=== PATIENT | female | born 1985 | race Hispanic/Latino ===

== ENCOUNTER 2016-09-29 15:23 | Emergency (ER) | payer OTHER ==
[~2016-09-29] VITALS: Ht 152.4 cm; Wt 99.8 kg
--- NOTE | 2016-09-29 16:33 | ED GENERAL ADULT ---
History of Present Illness General Chief Complaint: Low Back Pain/Injury Stated Complaint: LOW BACK PAIN/TAILBONE PAIN-28 WEEKS PREG Source: patient Exam Limitations: no limitations Vital Signs & Intake/Output Vital Signs & Intake/Output Vital Signs Date Time Temp Pulse Resp B/P Pulse O2 O2 Flow FiO2 Ox Delivery Rate 09/29 1711 97.8 09/29 1534 97.8 110 18 120/79 98 Room Air Allergies Coded Allergies: No Known Allergies (09/29/16) Triage Note: 31 YEAR OLD FEMALE, STATES THAT SHE IS 28 WEEKS AND THAT WITH HER FIRST PREGNACY SHE HAD SCIATICA, NOW FOR THE PAST WEEK OR SO SAME SYMPTOMS , PAIN LOW BACK AND SHOOTS DOWN HER LEG, DENIES ABD CRAMPING DISCHARGE. THIS NURSE SPOKE TO [facility] AND SHE IS OK TO BE SEEN IN ER AND THEY WILL COME AND DO FHR. PT HAS NO MD IN AREA Triage Nurses Notes Reviewed? yes Onset: Gradual Duration: week(s): (1) Timing: remote history Injury Environment: home Severity: severe Severity Numbers: 9 Modifying Factors: Worsens With: movement. : Yes Patient currently breastfeeds: No HPI: Patient is a 31-year-old female presenting to the emergency department with chief complaint of low back pain worsening over the past several days. History of sciatica during . She is currently 28 weeks due on December 10. Denies any urinary frequency or urgency or dysuria. No hematuria. Denies abdominal pain or cramping. No vaginal bleeding. She recently moved to the area from [facility]. She has an appointment scheduled for tomorrow in the ER for an ultrasound that after that she would like to remain in the area and find a new MANAGER PROCUREMENT. Denies any nausea or vomiting. No chest pain palpitations or shortness of breath. Denies any numbness or tingling. Pain radiates down the left leg at times. No Larch any weakness. Denies any urinary incontinence or retention. No trauma. (ROSINA LOPEZ,JERRY) Reconcile Medications Nitrofurantoin Monohyd/M-Cryst (Macrobid 100 MG Capsule) 100 MG CAPSULE 1 CAP PO BID UTI with food Prednisone 10 MG TABLET 0 PO DAILY ASTHMA 5 TABS PO ON DAY 1, DECREASE BY 10 MG DAILY X 5 DAYS. (BEE SAHU,MERLIN) Past History Travel History Traveled to [place] past 21 day No Medical History Any Pertinent Medical History? 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 No (JERRY IGLESIAS) Review of Systems Review of Systems Constitutional: Reports: no symptoms. Comments Review of systems: See HPI, All other systems negative. Constitutional, no chills fever or weight loss HEENT: No visual changes no sore throat no congestion Cardiovascular: No chest pain ,palpitation , orthopnea or ankle swelling Skin, no jaundice no rashes Respiratory: No dyspnea cough sputum or hemoptysis GI: No nausea no vomiting : No dysuria No hematuria Muscle skeletal: no neck pain, Neurologic: No numbness no confusion Psych: No stress anxiety Immunology: No splenectomy or history of AIDS (JERRY IGLESIAS) Physical Exam Physical Exam General Appearance: well developed/nourished, no apparent distress, alert, awake , comfortable Comments: Well-developed well-nourished person in no acute distress HEENT: Pupils equally round and reactive to light and accommodation. Nose is atraumatic. Neck: NORMAL INSPECTION Back: Tenderness palpation in the left lumbar paraspinal region. Near full range of motion somewhat limited secondary to pain. Negative straight leg raise bilaterally. Cardiovascular: Regular rate and rhythms no murmurs rubs or gallops, normal JVP Respiratory: Chest nontender. No respiratory distress.breath sounds clear to auscultation bilaterally Abdomen: Soft, ABDOMEN, no appreciable organomegaly. Normal bowel sounds. No ascites, nontender. Extremity: No edema Neuro: Alert oriented x3, motor sensory normal, PATELLAR REFLEX ARE 2 PLUS BILATERALLY Skin: No appreciable rash on exposed skin, skin is warm and dry. Psych: Mood and affect is normal, memory and judgment is normal. Core Measures ACS in differential dx? No CVA/TIA Diagnosis: No Severe Sepsis Present: No Septic Shock Present: No (JERRY IGLESIAS) Progress Differential Diagnoses I considered the following diagnoses in my evaluation of the patient: Sciatica, muscle strain, contusion, UTI, kidney stone Plan of Care: Orders Procedure Date/time Status Add-on Test (ER Only) 09/29 1739 Active CULTURE,URINE 09/30 1707 Active URINALYSIS 09/29 1633 Complete Laboratory Tests 09/29/161707: Urine Color YEL, Urine Clarity CLEAR, Urine pH 6.5, Ur Specific [place] 1.020, Urine Protein 30 H, Urine Ketones TRACE H, Urine Nitrite NEG, Urine Bilirubin NEG, Urine Urobilinogen 0.2, Ur Leukocyte Esterase TRACE H, Ur Microscopic SEDIMENT EXAMINED, Urine RBC RARE, Urine WBC 5-10 H, Ur Epithelial Cells MOD H , Urine Crystals RARE CA OX, Urine Bacteria MANY H, Urine Hemoglobin NEG, Urine Glucose NEG Microbiology 09/30 1707 URINE ROUT: Urine Culture - RECD Initial ED EKG: none Comments: Given Tylenol on arrival for pain. Patient no acute distress. No CVA tenderness. Urinalysis sent. tones are 140-150. Patient formed of urinalysis results. Slight UTI. Patient will be treated with Macrobid and follow-up with MANAGER PROCUREMENT. She was given a list of providers she can follow-up with. Discussed with Dr. Lora who agrees with plan. (JERRY IGLESIAS) Departure Departure Time of Disposition: 1739 Disposition: HOME OR SELF CARE Condition: Stable Clinical Impression Primary Impression: Sciatica Qualifiers: Laterality: left Qualified Code: M54.32 - Sciatica, left side Secondary Impressions: Urinary tract infection Qualifiers: Urinary tract infection type: site unspecified Hematuria presence: without hematuria Qualified Code: N39.0 - Urinary tract infection, site not specified Referrals: ISA RAMIREZ DO PATIENT HAS NO PRIMARY CARE DR (PCP/Family) KAILYN HOLLAND MD Additional Instructions: Follow-up with her MANAGER PROCUREMENT appointment for tomorrow. Take antibiotics as prescribed for UTI. Increase fluids. Take [id number] Tylenol as directed. Try warm compresses on her back. Return for worsening symptoms or concerns. YOU WERE also given a primary care physician SO YOU can follow-up with. Departure Forms: Customer Survey General Discharge Information Prescriptions: Current Visit Scripts Nitrofurantoin Monohyd/M-Cryst (Macrobid 100 MG Capsule) 1 CAP PO BID #10 CAP with food (JERRY IGLESIAS) PA/GREETING CARD MAKER Co-Sign Statement Statement: ED Attending supervision documentation- [] I saw and evaluated the patient. I have also reviewed all the pertinent lab results and diagnostic results. I agree with the findings and the plan of care as documented in the PA's/GREETING CARD MAKER's documentation. [X] I have reviewed the ED Record and agree with the PA's/GREETING CARD MAKER's documentation. [] Additions or exceptions (if any) to the PAs/GREETING CARD MAKER's note and plan are summarized below: [] (BEE SAHU,MERLIN) Critical Care Note Critical Care Note Critical Care Time: non-applicable (JERRY IGLESIAS)
[2016-09-29] MEDS ORDERED: MACROBID 100 M100 MG PO (17:42)
[2016-09-29 18:15] VITALS: BP 115/65
== END 2016-09-29 18:17 ==
LOC: ERH 15:23
DX: O23.43 Unspecified infection of urinary tract in pregnancy, third trimester (principal); O99.89 Other specified diseases and conditions complicating pregnancy, childbirth and the puerperium; M54.42 Lumbago with sciatica, left side; Z3A.28 28 weeks gestation of pregnancy
CPT/HCPCS: 81001; 87086

== ENCOUNTER 2016-10-04 22:27 | Emergency (ER) | payer OTHER ==
[~2016-10-04] VITALS: Ht 152.4 cm; Wt 99.8 kg
[~2016-10-04 22:27] MED LIST: MACROBID 100 M100 MG PO
--- NOTE | 2016-10-04 23:28 | ED DYSPNEA/ASTHMA COMPLAINT ---
See Addendum History of Present Illness General Chief Complaint: Wheezing/Asthma Stated Complaint: ASTHMA Source: patient, old records Exam Limitations: no limitations Vital Signs & Intake/Output Vital Signs & Intake/Output Vital Signs Date Time Temp Pulse Resp B/P Pulse O2 O2 Flow FiO2 Ox Delivery Rate 10/05 0103 98.4 88 18 125/73 98 Room Air 10/04 2353 98 10/04 2347 Room Air 10/04 2238 98.3 116 20 129/79 96 Room Air ED Intake and Output 10/05 0000 10/04 1200 Intake Total Output Total 100 Balance -100 Output, Urine 100 Patient 220 lb Weight Allergies Coded Allergies: No Known Allergies (09/29/16) Reconcile Medications Nitrofurantoin Monohyd/M-Cryst (Macrobid 100 MG Capsule) 100 MG CAPSULE 1 CAP PO BID UTI with food Prednisone 10 MG TABLET 0 PO DAILY ASTHMA 5 TABS PO ON DAY 1, DECREASE BY 10 MG DAILY X 5 DAYS. Triage Note: PT 28 WEEKS TO TRIAGE WITH C/O WHEEZING AND OUT OF BREATH,CHEST TIGHTNESS SINCE LAST NIGHT PT HAS BEEN USING VENTOLIN INH AND NEB TX AT HOME. . VSS. HX OF ASTHMA. Triage Nurses Notes Reviewed? yes : Yes Patient currently breastfeeds: No HPI: Patient is a 31-year-old female with one miscarriage currently approximately 28 weeks presents complaining of cough, wheezing, congestion. Symptoms onset yesterday. Patient has been taking Claritin, Yue, using her albuterol inhaler and nebulizer with minimal improvement. Cough is nonproductive. Wheezing and cough are currently moderate. Patient feels baby moving appropriately. Patient denies chest pain, abdominal pain, vaginal bleeding, fevers, chills. (PRERNA VILLANUEVA) Past History Travel History Traveled to [place] past 21 day No Medical History Any Pertinent Medical History? 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 No (PERRNA VILLANUEVA) Review of Systems Review of Systems Constitutional: Denies: chills, fever. EENTM: Reports: nasal congestion. Denies: ear pain, throat pain. Respiratory: Reports: cough, short of breath, wheezing. Denies: sputum production. Cardiovascular: Denies: chest pain. GI: Denies: abdominal pain, vomiting. Genitourinary: Denies: dysuria, hematuria, pain. Musculoskeletal: Reports: no symptoms. Skin: Reports: no symptoms. Neurological/Psychological: Reports: no symptoms. Hematologic/Endocrine: Reports: no symptoms. Immunologic/Allergic: Reports: no symptoms. (PRERNA VILLANUEVA) Physical Exam Physical Exam General Appearance: well developed/nourished, alert, awake Head: atraumatic, normal appearance Eyes: Bilateral: normal appearance, PERRL, EOMI. Ears, Nose, Throat: normal pharynx, normal ENT inspection, hearing grossly normal Neck: normal inspection, supple, full range of motion Respiratory: chest non-tender, mild diffuse expiratory wheezing Cardiovascular: tachycardia, regular rhythm, no murmur Gastrointestinal: gravid uterus, nontender Extremities: normal inspection, normal capillary refill, normal range of motion, no edema Neurologic/Psych: no motor/sensory deficits, awake, alert, oriented x 3, normal gait, normal mood/affect Skin: intact, normal color, warm/dry Lymphatic: no anterior cervical jaycee Core Measures ACS in differential dx? No Severe Sepsis Present: No Septic Shock Present: No (PRERNA VILLANUEVA) Progress Differential Diagnosis: asthma, bronchitis, pneumonia Plan of Care: Orders Procedure Date/time Status URINALYSIS 10/04 2337 Complete Laboratory Tests 10/04/16 2343: Urinalysis LIGHT H, Urine Color YEL, Urine Clarity CLEAR, Urine pH 6.0, Ur Specific [place] 1.025, Urine Protein NEG, Urine Ketones TRACE H, Urine Nitrite NEG, Urine Bilirubin NEG, Urine Urobilinogen 0.2, Ur Leukocyte Esterase TRACE H , Ur Microscopic SEDIMENT EXAMINED, Urine RBC 1-3, Urine WBC 1-3 H, Ur Epithelial Cells MOD H, Urine Bacteria MOD H, Urine Hemoglobin TRACE-INTACT, Urine Glucose NEG Discussed with Dr. Chang. 10/05/2016 12:14:41 AM: Patient feeling improved after nebulizer treatment. Appears stable for discharge. Patient provided with information to establish an family medicine resident as she recently moved to the area. (PRERNA VILLANUEVA) Initial ED EKG: none (PRERNA VILLANUEVA) Departure Departure Time of Disposition: 6 Disposition: HOME OR SELF CARE Condition: Stable Clinical Impression Primary Impression: Asthma exacerbation Referrals: PATIENT HAS NO PRIMARY CARE DR (PCP/Family) KAILYN WILSON MD Additional Instructions: Follow up with Dr. Wilson(family medicine resident) to re-establish care. Call in the morning for appointment. Use your inhaler as directed. Return to the ER if fevers, breathing worsening, unable to stay hydrated or worsening of symptoms. Departure Forms: Customer Survey General Discharge Information Prescriptions: Current Visit Scripts Prednisone 0 PO DAILY #15 TAB 5 TABS PO ON DAY 1, DECREASE BY 10 MG DAILY X 5 DAYS. (PRERNA VILLANUEVA) PA/WIRELESS STORE MANAGER Co-Sign Statement Statement: ED Attending supervision documentation- [] I saw and evaluated the patient. I have also reviewed all the pertinent lab results and diagnostic results. I agree with the findings and the plan of care as documented in the PA's/WIRELESS STORE MANAGER's documentation. [X] I have reviewed the ED Record and agree with the PA's/WIRELESS STORE MANAGER's documentation. [] Additions or exceptions (if any) to the PAs/WIRELESS STORE MANAGER's note and plan are summarized below: [] (MAYANK SAHU,SHERINE Spencer) Critical Care Note Critical Care Note Critical Care Time: non-applicable (PRERNA VILLANUEVA)
[2016-10-05] MEDS ORDERED: PREDNISONE10 M2 PO (00:13)
[2016-10-05 01:03] VITALS: BP 125/73
== END 2016-10-05 01:03 ==
LOC: ERH 22:27
DX: O99.513 Diseases of the respiratory system complicating pregnancy, third trimester (principal); J45.901 Unspecified asthma with (acute) exacerbation; Z3A.28 28 weeks gestation of pregnancy
CPT/HCPCS: 1263; 81001

== ENCOUNTER 2016-12-16 05:05 | Inpatient (IN) | payer OTHER ==
[~2016-12-16] VITALS: Ht 152.4 cm; Wt 104.3 kg
[~2016-12-16 05:05] MED LIST changes: +PREDNISONE10 M2 PO
[2016-12-16 05:57] LABS: ABSOLUTE BASOPHIL COUNT 0 /CUMM (0.0-0.2); ABSOLUTE EOSINOPHIL COUNT 0.1 /CUMM (0.0-0.7); ABSOLUTE GRANULOCYTE CT 9.5 /CUMM (1.4-6.5); ABSOLUTE LYMPH COUNT 3.3 /CUMM (1.2-3.4); ABSOLUTE MONOCYTE COUNT 1.1 /CUMM (0.10-0.60); BASOPHIL % 0.1 % (0.0-2.0); GRANULOCYTE % 67.6 % (42.2-75.2); HEMATOCRIT 37.3 % (37-47); MEAN CORPUSCULAR HGB 27.8 PG (27.0-31.0); MEAN CORPUSCULAR HGB CONC 32.6 G/DL (33.0-37.0); MEAN CORPUSCULAR VOLUME 85.4 FL (81.0-99.0); MEAN PLATELET VOLUME 6.9 FL (7.4-10.4); PLATELET COUNT 383 /CUMM (130-400); RBC DISTRIBUTION WIDTH 14.1 % (11.5-14.5); RED BLOOD CELL CT 4.37 /CUMM (4.20-5.40); WHITE BLOOD CELL COUNT 14.1 /CUMM (4.8-10.8)
--- NOTE | 2016-12-16 09:05 | PN- OBGYN ---
Surgical Brief Attending Note Brief Attending Note: Pt without strong sensation of contractions. pitocin restarted as they are q 5-6 minutes apart. pt going to labor down. anticipate this am. h/o PPH with 2nd delivery. Methergine/hemabate/misoprostol in room.
[2016-12-16 10:30] VITALS: BP 105/66
[2016-12-17 08:16] LABS: ABSOLUTE BASOPHIL COUNT 0 /CUMM (0.0-0.2); ABSOLUTE LYMPH COUNT 3.6 /CUMM (1.2-3.4); MEAN PLATELET VOLUME 7.1 FL (7.4-10.4); RBC DISTRIBUTION WIDTH 13.9 % (11.5-14.5); WHITE BLOOD CELL COUNT 12.8 /CUMM (4.8-10.8)
[2016-12-17 08:25] LABS: ABSOLUTE EOSINOPHIL COUNT 0.2 /CUMM (0.0-0.7); ABSOLUTE GRANULOCYTE CT 8.2 /CUMM (1.4-6.5); ABSOLUTE MONOCYTE COUNT 0.8 /CUMM (0.10-0.60); BASOPHIL % 0.3 % (0.0-2.0); EOSINOPHIL % 1.2 % (0-5); GRANULOCYTE % 63.9 % (42.2-75.2); MEAN CORPUSCULAR HGB 28.1 PG (27.0-31.0); MEAN CORPUSCULAR HGB CONC 32.7 G/DL (33.0-37.0); PLATELET COUNT 318 /CUMM (130-400)
[2016-12-17 08:28] LABS: RED BLOOD CELL CT 3.15 /CUMM (4.20-5.40)
[2016-12-17 08:29] LABS: HEMATOCRIT 27.1 % (37-47)
--- NOTE | 2016-12-17 16:04 | PN- Post Delivery/GYN ---
Subjective Subjective: Doing well overall. Patient started and out of bed once this morning. Dates her pain is controlled well with by mouth pain medication Review of Systems: Negative for cardiac pulmonary GI complaints Objective Last 24 Hrs of Vital Signs/I&O Afebrile normal vital signs pulse ox 99% room air Physical Exam General Appearance Alert, Oriented X3, Cooperative, No Acute Distress Cardiovascular Regular Rate Lungs Normal Air Movement Abdomen Normal Bowel Sounds, Soft, No Tenderness, No Hepatospenomegaly, incision clean dry and intact no erythema or induration or drainage Neurological Normal Gait, Normal Speech Extremities No Tenderness/Swelling Reproductive (FEMALE) Normal female genitalia Current Medications: Current Medications Sig/Antoine Start time Last Medication Dose Route Stop Time Status Admin Acetaminophen 1,000 MG Q6P PRN 12/16 1000 AC N/A 1 UNIT IV Acetaminophen 650 MG Q4P PRN 12/16 899 AC PO Bisacodyl 10 MG DAILY NEEDED PRN 12/16 899 AC IL Diphenhydramine HCl 25 MG Q6P PRN 12/16 899 AC IV Docusate Sodium 100 MG AT BEDTIME PRN 12/16 899 AC PO Enoxaparin Sodium 50 MG 12/17 AC SC Enoxaparin Sodium 40 MG 12/16 DC 12/16 SC 2026 Hydroxyzine HCl 50 MG AT BEDTIME NEED.. 12/17 0000 AC PO Ibuprofen 600 MG Q6P PRN 12/16 899 AC PO Ibuprofen 800 MG Q6P PRN 12/16 899 AC 12/17 PO 1211 Ketorolac 30 MG .STK-MED ONE 12/175 DC Tromethamine IM 12/17 0416 Ketorolac 30 MG Q6H 12/16 1000 DC 12/16 Tromethamine IV 12/17 0401 0958 Ketorolac 30 MG Q6P PRN 12/16 899 DC 12/17 Tromethamine IV 12/17 0859 0420 Lactated Ringer's 1,000 ML ONCE ONE 12/16 1745 DC 12/16 IV 12/17 0144 1731 Magnesium Hydroxide 30 ML DAILY NEEDED PRN 12/16 899 AC PO Oxycodone/ 1 TAB Q4P PRN 12/16 899 AC 12/17 Acetaminophen PO 1332 Oxycodone/ 2 TAB Q4P PRN 12/16 899 AC Acetaminophen PO Oxytocin 20 UNITS Q8H 12/16 0800 DC 12/16 Lactated Ringer's 1,000 ML IV 12/16 1659 0900 Last 24 Hrs of Labs/Gera: Laboratory Tests 12/17/16 0714: CBC w Diff NO MAN DIFF REQ, RBC 3.15 L, MCV 86.0, MCH 28.1, RDW 13.9, MPV 7.1 L, Gran % 63.9, Lymphocytes % 28.0, Monocytes % 6.6, Eosinophils % 1.2, Basophils % 0.3, Absolute Granulocytes 8.2 H, Absolute Lymphocytes 3.6 H, Absolute Monocytes 0.8 H, Absolute Eosinophils 0.2, Absolute Basophils 0, PUBS MCHC 32.7 L Assessment/Plan Assessment/Plan Stable day #1. Due to her morbid obesity patient is on Lovenox daily. The plan is for regular diet, encouraging full ambulation, and by mouth pain medicines previously ordered Problem List: 1. BMI 45.0-49.9, adult 2. delivery delivered 3. Macrosomia 4. 5. Anemia due to acute blood loss Attending MD Review Statement Attending Statement Attending MD Statement: examined this patient, discussed with family, reviewed EMR data (avail), discussed with nursing Attending Assessment/Plan: Syd Turcios MD
[2016-12-17] MEDS ORDERED: PERCOCET 5-3251 EACH PO (16:15)
[2016-12-17] MEDS ORDERED: IBUPROFEN600 M1 PO (16:15)
[2016-12-17] MEDS ORDERED: FERROUS SULFAT325 M3 PO (16:15)
[2016-12-17] MEDS ORDERED: PRENATAL TABLE1 EAC2 PO (16:15)
--- NOTE | 2016-12-18 11:00 | PN- Post Delivery/GYN ---
Subjective Subjective: Doing well - is tired, was up last pm with her son. Circumcision consent signed today Review of Systems: Neg for Cardiac Pulmonary GI complaints Objective Last 24 Hrs of Vital Signs/I&O Afebrile normal vital signs Physical Exam General Appearance Alert, Oriented X3, Cooperative, No Acute Distress Cardiovascular Regular Rate Lungs Normal Air Movement Abdomen Normal Bowel Sounds, Soft, No Tenderness, No Hepatospenomegaly, uterine fundus is firm midline 2 fingerbreadths below the umbilicus nontender incision is clean dry and intact without erythema or induration or drainage Neurological Normal Gait, Normal Speech Extremities No Tenderness/Swelling Reproductive (FEMALE) Normal female genitalia, average lochia Current Medications: Current Medications Sig/Antoine Start time Last Medication Dose Route Stop Time Status Admin Acetaminophen 1,000 MG Q6P PRN 12/16 1000 AC N/A 1 UNIT IV Acetaminophen 650 MG Q4P PRN 12/16 899 AC PO Bisacodyl 10 MG DAILY NEEDED PRN 12/16 899 AC IN Diphenhydramine HCl 25 MG Q6P PRN 12/16 899 AC IV Docusate Sodium 100 MG AT BEDTIME PRN 12/16 899 AC PO Enoxaparin Sodium 50 MG 12/17 AC 12/17 SC 2006 Enoxaparin Sodium 40 MG 12/16 DC 12/16 SC 2025 Hydroxyzine HCl 50 MG AT BEDTIME NEED.. 12/17 0000 AC PO Ibuprofen 800 MG .STK-MED ONE 12/17 2343 DC PO 12/17 2344 Ibuprofen 800 MG .STK-MED ONE 12/17 1105 DC PO 12/17 1106 Ibuprofen 600 MG Q6P PRN 12/16 899 AC PO Ibuprofen 800 MG Q6P PRN 12/16 899 AC 12/18 PO 1002 Magnesium Hydroxide 30 ML DAILY NEEDED PRN 12/16 0800 AC PO Oxycodone/ 1 TAB Q4P PRN 12/16 899 AC 12/17 Acetaminophen PO 2000 Oxycodone/ 2 TAB Q4P PRN 12/16 899 AC 12/18 Acetaminophen PO 907 Assessment/Plan Assessment/Plan Stable day #2 postop day #2. Patient is overall doing well. She remains afebrile. Incision is remains clean dry and intact. Circumcision will be performed for her son today. Plan is increasing ambulation continue regular diet and by mouth pain medications Problem List: 1. BMI 45.0-49.9, adult 2. delivery delivered 3. Macrosomia 4. Anemia due to acute blood loss Attending MD Review Statement Attending Statement Attending MD Statement: examined this patient, discussed with family, reviewed EMR data (avail), discussed with nursing Attending Assessment/Plan: Bree Turcios M.D.
[2016-12-18 11:34] LABS: ABSOLUTE BASOPHIL COUNT 0 /CUMM (0.0-0.2); ABSOLUTE EOSINOPHIL COUNT 0.3 /CUMM (0.0-0.7); ABSOLUTE GRANULOCYTE CT 8.3 /CUMM (1.4-6.5); ABSOLUTE LYMPH COUNT 3.8 /CUMM (1.2-3.4); ABSOLUTE MONOCYTE COUNT 1.3 /CUMM (0.10-0.60); BASOPHIL % 0.1 % (0.0-2.0); EOSINOPHIL % 2.2 % (0-5); GRANULOCYTE % 60.3 % (42.2-75.2); HEMATOCRIT 27.5 % (37-47); MEAN CORPUSCULAR HGB 28.1 PG (27.0-31.0); MEAN CORPUSCULAR HGB CONC 32.5 G/DL (33.0-37.0); MEAN CORPUSCULAR VOLUME 86.4 FL (81.0-99.0); MEAN PLATELET VOLUME 6.8 FL (7.4-10.4); PLATELET COUNT 344 /CUMM (130-400); RBC DISTRIBUTION WIDTH 14.4 % (11.5-14.5); RED BLOOD CELL CT 3.18 /CUMM (4.20-5.40); WHITE BLOOD CELL COUNT 13.8 /CUMM (4.8-10.8)
[2016-12-19] MEDS ORDERED: LASIX20 M1 PO (13:07)
[2016-12-19] MEDS ORDERED: POTASSIUM CHLO10 ME4 PO (13:07)
--- NOTE | 2016-12-19 13:18 | PN- Post Delivery/GYN ---
Subjective Subjective: Doing well ready for discharge Review of Systems: Neg for Cardiac Pulmonary GI complaints Objective Last 24 Hrs of Vital Signs/I&O Afebrile VSS Physical Exam General Appearance Alert, Oriented X3, Cooperative, No Acute Distress Skin No Significant Lesion Cardiovascular Regular Rate Lungs Normal Air Movement Abdomen Normal Bowel Sounds, Soft, No Tenderness, No Hepatospenomegaly, uterine fundus firm nontender 3 FB below umbilicus INCISION clean dry intact Neurological Normal Gait, Normal Speech Extremities No Tenderness/Swelling Reproductive (FEMALE) Normal female genitalia, avge lochia Current Medications: Current Medications Sig/Antoine Start time Last Medication Dose Route Stop Time Status Admin Acetaminophen 1,000 MG Q6P PRN 12/16 1000 AC N/A 1 UNIT IV Acetaminophen 650 MG Q4P PRN 12/16 899 AC PO Bisacodyl 10 MG DAILY NEEDED PRN 12/16 899 AC OK Diphenhydramine HCl 25 MG Q6P PRN 12/16 899 AC IV Docusate Sodium 100 MG .STK-MED ONE 12/18 2324 DC PO 12/18 2325 Docusate Sodium 100 MG AT BEDTIME PRN 12/16 899 AC 12/18 PO 2327 Enoxaparin Sodium 50 MG 12/17 AC 12/18 SC 2030 Hydroxyzine HCl 50 MG AT BEDTIME NEED.. 12/17 0000 AC PO Ibuprofen 800 MG .STK-MED ONE 12/19 0421 DC PO 12/19 0422 Ibuprofen 800 MG .STK-MED ONE 12/18 2225 DC PO 12/18 2226 Ibuprofen 800 MG .STK-MED ONE 12/18 1607 DC PO 12/18 1608 Ibuprofen 600 MG Q6P PRN 12/16 899 AC PO Ibuprofen 800 MG Q6P PRN 12/16 899 AC 12/19 PO 1008 Magnesium Hydroxide 30 ML DAILY NEEDED PRN 12/16 899 AC PO Oxycodone/ 2 TAB .STK-MED ONE 12/18 1858 DC Acetaminophen PO 12/18 1859 Oxycodone/ 1 TAB Q4P PRN 12/16 899 AC 12/17 Acetaminophen PO 2000 Oxycodone/ 2 TAB Q4P PRN 12/16 899 AC 12/19 Acetaminophen PO 1008 Assessment/Plan Assessment/Plan Stable PPD/ POD #3 ready for discharge Discharge home bertin out @ f/up CBC visit this week Problem List: 1. BMI 45.0-49.9, adult 2. delivery delivered 3. Macrosomia 4. Anemia due to acute blood loss Attending MD Review Statement Attending Statement Attending MD Statement: examined this patient, discussed with family, reviewed EMR data (avail), discussed with nursing Attending Assessment/Plan: Syd WU MD
--- NOTE | 2016-12-23 15:40 | Operative Report ---
Operative/Inv Procedure Report Surgery Date: 12/17/16 Name of Procedure: primary low transverse c/s Pre-Operative Diagnosis: macrosomia Post-Operative Diagnosis: macrosomia Estimated Blood Loss: 350 Surgeon/Utility Manager: BYRON SAHU,PRERNA Wilson Anesthesia: block Monitors: fhr 144 bpm IV Fluids: LR Urine Output: 300cc Drains: kelly Specimens: placenta Complications: none Condition: good Operative Indication: macrosomia failed shoulder dystocia screen Operative/Procedure Note Note: Pt was taken to the OR preped and draped in the usual sterile fashon FHR 144 BPM after a time out and checking for the adequacy of anasthesia the pannus was taped. A Pfanensteal incision was made sharply and carried down to the facia which was incised in the midline sharply and carried our laterally sharply. The facia was divided from the underlying rectus muscles in a superior and inferior direction sharply. the peritoneum was entered sharply. a low transverse incision was made on the uterus in the midline sharply and carried out laterly bluntly. the amniotic membrained was entered with clear fluid, the infent was delivered atraumaticlly from the vertix position the cord doubly clamped oralpharnys bulb suctioned and the infant was handed to the pediatric attendent. the placenta was delivered the interior of the uterus was wiped clean with a wet lap pad no membrains were left. the uterine incision was closed in two layers the first with an 0 dexon in a running locking fashon the second with an imbricating 0 dexon. hemostasis was achieved with pitocin. the peritoneal cavity was irigated with NS. the incision checked for hemostasis which was excelent. the peritonum was reapproximated with a simple running 0 dexon. the subfacial planes were checked for hemostasis which was excelent. the fascia was reapproximated with 2 0 dexon sutures in a simple fashon overlaping in the midline. the suc cutaneous planes were irigated and scarpers facia was closed with a 2-0 running dexon. the skin was closed with bertin sponge instruments and needle counts were correct X3. pt moved to the recovery area Discharge Disposition: [facility] room
== END 2016-12-19 14:00 | DRG 540 ==
LOC: GNO 05:05
PROVIDERS: Obstetrics & Gynecology; ADMIT Obstetrics & Gynecology
PROC: 10D00Z1 Extraction of Products of Conception, Low, Open Approach (ICD-10-PCS; principal; 2016-12-16)
DX: O36.63X0 Maternal care for excessive fetal growth, third trimester, not applicable or unspecified (principal); D62 Acute posthemorrhagic anemia; O99.214 Obesity complicating childbirth; Z68.42 Body mass index [BMI] 45.0-49.9, adult; Z3A.40 40 weeks gestation of pregnancy; Z37.0 Single live birth; O90.81 Anemia of the puerperium
CPT/HCPCS: GNOS; 59025; 81001; 87086; J0131; J0690; J1650; J1885; J7120

== ENCOUNTER 2016-12-21 17:07 | Emergency (ER) | payer OTHER ==
[~2016-12-21] VITALS: Ht 152.4 cm; Wt 104.3 kg
[~2016-12-21 17:07] MED LIST changes: +FERROUS SULFAT325 M3 PO; +IBUPROFEN600 M1 PO; +LASIX20 M1 PO; +PERCOCET 5-3251 EACH PO; +POTASSIUM CHLO10 ME4 PO; +PRENATAL TABLE1 EAC2 PO
[2016-12-21 17:12] VITALS: BP 119/78
--- NOTE | 2016-12-21 18:47 | ED GENERAL ADULT ---
History of Present Illness General Chief Complaint: Lower Extremity Problems Stated Complaint: LOWER LEG SWELLING Source: patient Exam Limitations: no limitations Vital Signs & Intake/Output Vital Signs & Intake/Output Vital Signs Date Time Temp Pulse Resp B/P B/P Pulse O2 O2 Flow FiO2 Mean Ox Delivery Rate 12/21 1712 97.8 105 16 119/78 98 Room Air Allergies Coded Allergies: animal dander (MAY TRIGGER ASTHMA 12/21/16) pollen extracts (MAY TRIGGER ASTHMA 12/21/16) Reconcile Medications Albuterol Sulfate (Proair Hfa) 90 MCG HFA.AER.AD 2 PUF INH Q4-6 PRN PRN ASTHMA (Reported) Ferrous Sulfate 325 MG (65 MG IRON) TABLET 1 TAB PO DAILY ANEMIA Furosemide (Lasix) 20 MG TABLET 1 TAB PO DAILY SWELLING Ibuprofen 600 MG TABLET 800 MG PO Q6P PRN UTERINE CRAMPING Oxycodone HCl/Acetaminophen (Percocet 5-325 MG Tablet) 5 MG-325 MG TABLET 1-2 TAB PO Q4P PRN PAIN SCALE 4 - 10 Potassium Chloride 10 MEQ TABLET.ER 1 TAB PO DAILY TAKING LASIX Vit No.130/Iron/FA ( Tablet) 27 MG IRON-800 MCG TABLET 1 TAB PO DAILY VITAMIN SUPPORT Triage Note: PT HAD BABY 5 DAYS AGO AND COMES IN TODAY WITH SWELLING TO BILAT LOWER EXT. PT CALLED DR. DAVE AND WAS TOLD TO COME TO ED. Triage Nurses Notes Reviewed? yes Onset: Abrupt Duration: day(s):, constant, getting worse Timing: recent history Injury Environment: home No Modifying Factors: none : No Patient currently breastfeeds: Yes HPI: 31-year-old female comes into emergency room for further evaluation of bilateral lower leg swelling. Patient had a 5 days ago. She is a . No history of preeclampsia. No diagnoses of any sort done a . Uncomplicated. She reports that the swelling is getting progressively worse. She called her PRINTING MACHINE MECHANIC doctor who sent her in for further evaluation. She denies any chest pain or shortness of breath. Denies any other associated symptoms. (SERA MANN) Past History Travel History Traveled to [place] past 21 day No Medical History Any Pertinent Medical History? 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 No (SERA MANN) Review of Systems Review of Systems Constitutional: Reports: no symptoms. EENTM: Reports: no symptoms. Respiratory: Reports: no symptoms. Cardiovascular: Reports: no symptoms. GI: Reports: no symptoms. Genitourinary: Reports: no symptoms. Musculoskeletal: Reports: see HPI. Skin: Reports: see HPI. Neurological/Psychological: Reports: no symptoms. Hematologic/Endocrine: Reports: no symptoms. Immunologic/Allergic: Reports: no symptoms. All Other Systems: Reviewed and Negative (SERA MANN) Physical Exam Physical Exam General Appearance: well developed/nourished, alert, awake Head: atraumatic Eyes: Bilateral: normal appearance. Ears, Nose, Throat: normal ENT inspection, hearing grossly normal Neck: normal inspection Respiratory: no respiratory distress Cardiovascular: regular rate/rhythm Gastrointestinal: soft, incision sight shows no discharge, bertin in place, no erythema, no warmth, Back: normal inspection Extremities: pedal edema, swelling bilaterally Neurologic/Psych: awake, alert, oriented x 3 Skin: intact, normal color Core Measures ACS in differential dx? No CVA/TIA Diagnosis: No Severe Sepsis Present: No Septic Shock Present: No (SERA MANN) Progress Differential Diagnoses I considered the following diagnoses in my evaluation of the patient: Preeclampsia, DVT, renal failure, CHF, post edema, Plan of Care: Orders Procedure Date/time Status URINALYSIS 12/21 1845 Complete COMPREHENSIVE METABOLIC PANEL 12/21 1845 Complete CBC WITHOUT DIFFERENTIAL 12/21 1845 Complete Laboratory Tests 12/21/16 2020: Anion Gap 8, Estimated GFR > 60, BUN/Creatinine Ratio 22.9, Glucose 66, Calcium 9.1, Total Bilirubin 0.5, AST 53 H, ALT 58 H, Alkaline Phosphatase 93, Total Protein 5.8 L, Albumin 3.1 L, Globulin 2.7, Albumin/Globulin Ratio 1.1, CBC w Diff NO MAN DIFF REQ, RBC 3.32 L, MCV 86.3, MCH 28.0, RDW 14.6 H, MPV 6.5 L, Gran % 60.2, Lymphocytes % 26.1, Monocytes % 8.0, Eosinophils % 5.3 H, Basophils % 0.4, Absolute Granulocytes 8.3 H, Absolute Lymphocytes 3.6 H, Absolute Monocytes 1.1 H, Absolute Eosinophils 0.7, Absolute Basophils 0.1, PUBS MCHC 32.5 L 12/21/16 1900: Urine Color YEL, Urine Clarity HAZY H, Urine pH 6.0, Ur Specific Addy 1.010, Urine Protein 30 H, Urine Ketones NEG, Urine Nitrite NEG, Urine Bilirubin NEG, Urine Urobilinogen 0.2, Ur Leukocyte Esterase SMALL H, Ur Microscopic SEDIMENT EXAMINED, Urine RBC 50-75 H, Urine WBC RARE, Ur Epithelial Cells FEW, Urine Bacteria FEW H, Micro UA Comment MORE INFO: H, Urine Hemoglobin LARGE H, Urine Glucose NEG Diagnostic Imaging: Viewed by Me: Ultrasound. Discussed w/RAD: Ultrasound. Initial ED EKG: none Hand-Off Endorsed To: MAYANK SAHU,SHERINE Spencer Endorsed Time: 1951 Pending: ultrasound (SHELLEY LOPEZ,SERA) Radiology Impression: PATIENT: TATE BINGHAM PRESENT AGE: 31 PATIENT ACCOUNT NO: [id number] : 83 LOCATION: [facility] ORDERING PHYSICIAN: SERA LOPEZ SERVICE DATE: 12/21/16 EXAM TYPE: US - US -EXT BILAT VENOUS DOPPLER EXAMINATION: US TRIPLEX OF LOWER EXTREMITIES, BILATERAL CLINICAL INFORMATION: Bilateral lower extremity swelling. COMPARISON: None. TECHNIQUE: Color-flow triplex imaging with spectral analysis and compression Doppler were performed on the lower extremities. FINDINGS: Respiratory variation, normal compression and augmented flow are noted throughout the lower extremities. The visualized common femoral, femoral, profunda femoral, popliteal and midcalf peroneal and posterior tibial venous segments demonstrate no evidence of deep venous thrombosis. There are no Baxter's cysts. IMPRESSION: Normal triplex scan without evidence of deep venous thrombosis involving the bilateral lower extremities. DICTATED BY: JAMES HAYES MD DATE/TIME DICTATED:12/21/161999 BURNER HAND:JAY DATE/TIME TRANSCRIBED:12/21/161999 CONFIDENTIAL, DO NOT COPY WITHOUT APPROPRIATE AUTHORIZATION. <Electronically signed in Other Vendor System> SIGNED BY: JAMES HAYES MD 12/21/162018 (MAYANK SAHU,SHERIEN Spencer) Departure Departure Disposition: HOME OR SELF CARE Condition: Stable Clinical Impression Primary Impression: Localized swelling of both lower legs Referrals: PATIENT HAS NO PRIMARY CARE DR (PCP/Family) Additional Instructions: Elevate your legs. Follow-up with your PRINTING MACHINE MECHANIC doctor. Return if any concerns worsening symptoms. Please go over all results of today's visit with your primary care doctor. Contact your primary care doctor to let them know you were here in the emergency room. There may be nonspecific findings which may not be related to your visit today here in the emergency room but may require further evaluation and chronic monitoring by your primary care doctor. If you had a laceration today the chance of foreign body always remains. You should follow-up with your primary care doctor for recheck in 3-5 days for a wound check. If you had an x-ray done there is a chance that a fracture could have been missed on initial read and you should follow-up with your primary care doctor for repeat x-rays if symptoms persist. If your blood pressure was elevated here in the emergency room please have rechecked by her primary care doctor within the next 48 hours by your primary care doctor. If you were prescribed a narcotic here in the emergency room or any type of controlled substances you're not allowed to drive while taking this medication or operate any type of heavy machinery. Narcotics can make you feel lightheaded dizziness nausea and can cause constipation. You may need to pickling solution maker a stool softener. Thank you for choosing [facility] emergency room. Please return to the emergency room immediately if you have any other concerns worsening of symptoms. Departure Forms: Customer Survey General Discharge Information (SERA MANN) PA/CORRECTIONAL AGENCY DIRECTOR Co-Sign Statement Statement: ED Attending supervision documentation- [x] I saw and evaluated the patient. I have also reviewed all the pertinent lab results and diagnostic results. I agree with the findings and the plan of care as documented in the PA's/CORRECTIONAL AGENCY DIRECTOR's documentation. [x] I have reviewed the ED Record and agree with the PA's/CORRECTIONAL AGENCY DIRECTOR's documentation. [] Additions or exceptions (if any) to the PAs/CORRECTIONAL AGENCY DIRECTOR's note and plan are summarized below: [] (MAYANK SAHU,SHERINE Spencer) Critical Care Note Critical Care Note Critical Care Time: non-applicable (SERA MANN)
[2016-12-21] MEDS ORDERED: PROAIR HFA8.5 GM INH (19:38)
--- NOTE | 2016-12-21 20:19 | ULTRASOUND REPORT ---
EXAMINATION: US TRIPLEX OF LOWER EXTREMITIES, BILATERAL CLINICAL INFORMATION: Bilateral lower extremity swelling. COMPARISON: None. TECHNIQUE: Color-flow triplex imaging with spectral analysis and compression Doppler were performed on the lower extremities. FINDINGS: Respiratory variation, normal compression and augmented flow are noted throughout the lower extremities. The visualized common femoral, femoral, profunda femoral, popliteal and midcalf peroneal and posterior tibial venous segments demonstrate no evidence of deep venous thrombosis. There are no Baxter's cysts. IMPRESSION: Normal triplex scan without evidence of deep venous thrombosis involving the bilateral lower extremities.
[2016-12-21 20:41] LABS: ABSOLUTE BASOPHIL COUNT 0.1 /CUMM (0.0-0.2); ABSOLUTE EOSINOPHIL COUNT 0.7 /CUMM (0.0-0.7); ABSOLUTE GRANULOCYTE CT 8.3 /CUMM (1.4-6.5); ABSOLUTE LYMPH COUNT 3.6 /CUMM (1.2-3.4); ABSOLUTE MONOCYTE COUNT 1.1 /CUMM (0.10-0.60); BASOPHIL % 0.4 % (0.0-2.0); EOSINOPHIL % 5.3 % (0-5); GRANULOCYTE % 60.2 % (42.2-75.2); HEMATOCRIT 28.6 % (37-47); MEAN CORPUSCULAR HGB CONC 32.5 G/DL (33.0-37.0); MEAN CORPUSCULAR VOLUME 86.3 FL (81.0-99.0); MEAN PLATELET VOLUME 6.5 FL (7.4-10.4); RBC DISTRIBUTION WIDTH 14.6 % (11.5-14.5); RED BLOOD CELL CT 3.32 /CUMM (4.20-5.40); WHITE BLOOD CELL COUNT 13.9 /CUMM (4.8-10.8)
[2016-12-21 20:57] LABS: PLATELET COUNT 297 /CUMM (130-400)
== END 2016-12-21 21:59 ==
LOC: ERH 17:07
PROVIDERS: Physician Assistant Medical
DX: M79.89 Other specified soft tissue disorders (principal)
CPT/HCPCS: 81001; 93970

== ENCOUNTER 2016-12-26 22:23 | Emergency (ER) | payer OTHER ==
[~2016-12-26] VITALS: Ht 152.4 cm; Wt 99.8 kg
[~2016-12-26 22:23] MED LIST changes: +PROAIR HFA8.5 GM INH
[2016-12-26 22:34] VITALS: BP 115/79
--- NOTE | 2016-12-27 00:15 | ED GI/GU/ABDOMINAL COMPLAINT ---
History of Present Illness General Chief Complaint: Female Urogenital Problems Stated Complaint: PT IS HERE TO CHECK HER SCAR POSSIBLE INFECTION Source: patient, family Exam Limitations: no limitations Vital Signs & Intake/Output Vital Signs & Intake/Output Vital Signs Date Time Temp Pulse Resp B/P B/P Pulse O2 O2 Flow FiO2 Mean Ox Delivery Rate 12/264 97.9 86 20 115/79 97 Room Air ED Intake and Output 12/27 0000 12/26 1200 Intake Total Output Total Balance Patient 220 lb Weight Weight Reported by Patient Measurement Method Allergies Coded Allergies: animal dander (MAY TRIGGER ASTHMA 12/26/16) pollen extracts (MAY TRIGGER ASTHMA 12/26/16) Reconcile Medications Albuterol Sulfate (Proair Hfa) 90 MCG HFA.AER.AD 2 PUF INH Q4-6 PRN PRN ASTHMA (Reported) Ferrous Sulfate 325 MG (65 MG IRON) TABLET 1 TAB PO DAILY ANEMIA Furosemide (Lasix) 20 MG TABLET 1 TAB PO DAILY SWELLING Ibuprofen 600 MG TABLET 800 MG PO Q6P PRN UTERINE CRAMPING Nystatin (Nyamyc) 100,000 UNIT/GRAM POWDER 1 KIT TOP BID tinea Oxycodone HCl/Acetaminophen (Percocet 5-325 MG Tablet) 5 MG-325 MG TABLET 1-2 TAB PO Q4P PRN PAIN SCALE 4 - 10 Potassium Chloride 10 MEQ TABLET.ER 1 TAB PO DAILY TAKING LASIX Vit No.130/Iron/FA ( Tablet) 27 MG IRON-800 MCG TABLET 1 TAB PO DAILY VITAMIN SUPPORT Triage Note: TRIAGE: PT TO ER C/C LOW ABD PAIN AT SITE OF INCISION. ONSET OF PAIN ON DELIVERY DATE 12/16/16, CONSTANT SINCE ONSET. CONCERNED ALSO ABOUT INFECTION SHE HAS NOTICED SOME FLUID DRAINAGE WHICH HAS "PINKNESS" COLOR. ALSO STATES "IT DOESN'T SMELL GOOD". Triage Nurses Notes Reviewed? yes LMP (ages 10-50): unknown ? n Is pt currently ? Yes Onset: Abrupt Duration: day(s): (2-3), constant, continues in ED Timing: single episode today Quality/Severity: mild Severity Numbers: 4 Location: scar Radiation: no radiation Activities at Onset: none Prior Abdominal Problems: 12/16 Sexually Active: Yes Last Time You Were Sexual: less than 2 months ago No Modifying Factors: none HPI: 31-year-old female no significant past medical history presents for evaluation of possible infection of scar. Patient had a on 12/16/2016. Surgery was uncomplicated patient was discharged home. She had her bertin removed 5 days after. Over the past 2 or 3 days patient has noted some discharge, odor, itching and redness from the area. She also reports some minor pain in the area of the incision that has been present since the surgery. Pain is not getting worse. She denies any fever, pus, swelling, abdominal pain, nausea, vomiting, increasing vaginal discharge. She has not taken any medications for the symptoms. (JS IVORY PA-C) Past History Travel History Traveled to [place] past 21 day No Medical History Any Pertinent Medical History? 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 No (JS IVORY PA-C) Review of Systems Review of Systems Constitutional: Reports: no symptoms. EENTM: Reports: no symptoms. Respiratory: Reports: no symptoms. Cardiovascular: Reports: no symptoms. GI: Reports: no symptoms. Genitourinary: Reports: no symptoms. Musculoskeletal: Reports: no symptoms. Skin: Reports: see HPI. Neurological/Psychological: Reports: no symptoms. Hematologic/Endocrine: Reports: no symptoms. Immunologic/Allergic: Reports: no symptoms. All Other Systems: Reviewed and Negative (JS IVORY PA-C) Physical Exam Physical Exam General Appearance: well developed/nourished, no apparent distress, alert, awake , comfortable Head: atraumatic, normal appearance Eyes: Bilateral: normal appearance, PERRL, EOMI, normal inspection. Ears, Nose, Throat, Mouth: hearing grossly normal, moist mucous membrane, Tympanic normal Neck: normal inspection, supple, full range of motion, normal alignment Respiratory: normal breath sounds, chest non-tender, no respiratory distress, lungs clear Cardiovascular: regular rate/rhythm, normal peripheral pulses Peripheral Pulses: 2+ dorsalis pedis (R), 2+ dorsalis pedis (L) Gastrointestinal: normal bowel sounds, soft, non-tender, no organomegaly Back: normal inspection, normal range of motion, no vertebral tenderness Extremities: normal range of motion Neurologic/Psych: no motor/sensory deficits, awake, alert, oriented x 3, normal gait, normal mood/affect Skin: intact Comments: scar is clean dry and intact. In the skin folds of the abdomen there are some raised erythematous areas and foul odor. There is no pain with palpation, swelling, discharge, or excessive heat. No dehiscence. Core Measures ACS in differential dx? No Severe Sepsis Present: No Septic Shock Present: No (JS IVORY PA-C) Progress Differential Diagnosis: ovarian torsion, UTI/pyelo, tinea, cellulitis, abscess Plan of Care: Patient seen and evaluated. No signs of bacterial infection at the incision site at this time. There is some odor and raised erythema in the skin folds of the lower abdomen. Patient will be treated with nystatin powder for possible fungal infection. She'll follow-up with CAUSTIC PUMP OPERATOR tomorrow. Discussed signs of bacterial infection with patient and advised her to return to emergency Department if these occur. Initial ED EKG: none (JS IVORY PA-C) Departure Departure Disposition: HOME OR SELF CARE Condition: Stable Clinical Impression Primary Impression: Tinea corporis Referrals: BRYCE SAHU,DOMINIQUE Faust (PCP/Family) Additional Instructions: Keep the area clean and dry. Apply nystatin powder to the area twice a day. Tylenol as needed for pain. Make a follow-up appointment with your CAUSTIC PUMP OPERATOR doctor this week. Monitor for signs of bacterial infection such as swelling discharge pain or fever. Return to emergency department as needed. Departure Forms: Customer Survey General Discharge Information Prescriptions: Current Visit Scripts Nystatin ([facility]) 1 KIT TOP BID #30 G (JS IVORY PA-C) PA/DRAGLINE OPERATOR Co-Sign Statement Statement: ED Attending supervision documentation- [] I saw and evaluated the patient. I have also reviewed all the pertinent lab results and diagnostic results. I agree with the findings and the plan of care as documented in the PA's/DRAGLINE OPERATOR's documentation. [x] I have reviewed the ED Record and agree with the PA's/DRAGLINE OPERATOR's documentation. [] Additions or exceptions (if any) to the PAs/DRAGLINE OPERATOR's note and plan are summarized below: [] (VASILE SAHU,CHANDLER Wilson)
[2016-12-27] MEDS ORDERED: NYAMYC15 GM TOP (00:43)
== END 2016-12-27 01:11 ==
LOC: ERH 22:23
DX: B35.4 Tinea corporis (principal)

== ENCOUNTER 2017-11-25 12:41 | Emergency (ER) | payer OTHER ==
[~2017-11-25] VITALS: Ht 152.4 cm; Wt 93.0 kg
[~2017-11-25 12:41] MED LIST changes: +ALBUTEROL1.25 MG/1 INH/SOL; +AUGMENTIN 875-1 EACH PO; +NYAMYC15 GM TOP; +PREDNISONE50 M1 PO; +VENTOLIN HFA18 GM INH
--- NOTE | 2017-11-25 15:13 | ED DYSPNEA/ASTHMA COMPLAINT ---
History of Present Illness General Chief Complaint: Upper Respiratory Sx/Fever Stated Complaint: COUGH, ?COLD SYMPTOMS Source: patient Exam Limitations: no limitations Vital Signs & Intake/Output Vital Signs & Intake/Output Vital Signs Date Time Temp Pulse Resp B/P B/P Pulse O2 O2 Flow FiO2 Mean Ox Delivery Rate 11/25 1612 97 11/25 1556 98.7 100 16 120/75 98 Room Air ED Intake and Output 11/26 0000 11/25 1200 Intake Total 0 Output Total Balance 0 Intake, Oral 0 Patient 92.986 kg Weight Weight Reported by Patient Measurement Method Allergies Coded Allergies: animal dander (MAY TRIGGER ASTHMA 12/26/16) pollen extracts (MAY TRIGGER ASTHMA 12/26/16) Reconcile Medications Albuterol Sulfate (Proair Hfa) 90 MCG HFA.AER.AD 2 PUF INH Q4-6 PRN PRN ASTHMA (Reported) Albuterol Sulfate (Proventil Hfa) 90 MCG HFA.AER.AD 2 PUF INH Q4 PRN ASTHMA Albuterol Sulfate (Ventolin Hfa) 90 MCG HFA.AER.AD 2 PUF INH Q4-6 PRN PRN asthma Albuterol Sulfate 1.25 MG/3 ML VIAL.NEB 1 Vial INH/ROMÁN Q4-6 PRN WHEEZE Amoxicillin/Potassium Clav (Augmentin 875-125 Tablet) 875 MG-125 MG TABLET 1 TAB PO BID bronchitis Ferrous Sulfate 325 MG (65 MG IRON) TABLET 1 TAB PO DAILY ANEMIA Furosemide (Lasix) 20 MG TABLET 1 TAB PO DAILY SWELLING Ibuprofen 600 MG TABLET 800 MG PO Q6P PRN UTERINE CRAMPING Nystatin (Nyamyc) 100,000 UNIT/GRAM POWDER 1 KIT TOP BID tinea Oxycodone HCl/Acetaminophen (Percocet 5-325 MG Tablet) 5 MG-325 MG TABLET 1-2 TAB PO Q4P PRN PAIN SCALE 4 - 10 Potassium Chloride 10 MEQ TABLET.ER 1 TAB PO DAILY TAKING LASIX Prednisone 20 MG TABLET 1 TAB PO BID ASTHMA Prednisone 50 MG TABLET 1 TAB PO DAILY bronchitis Vit No.130/Iron/FA ( Tablet) 27 MG IRON-800 MCG TABLET 1 TAB PO DAILY VITAMIN SUPPORT Triage Note: 32 Y/O FEMALE C/O URI SYMPTOMS X 4 DAYS; DAUGHTER SICK WITH SIMILIAR SYMPTOMS. PT STATES COUGH IS PRODUCTIVE WITH "GREEN/YELLOW" PHLEGM. REPORTS GOOD APPETITE/PO INTAKE. SPEAKING CLEARLY WITH NO DISTRESS NOTED, SAT 96%. Triage Nurses Notes Reviewed? yes : No Patient currently breastfeeds: No HPI: 32F PMH asthma with 5 days of cough with yellow/green sputum, dyspnea requiring hourly Albuterol use, and wheezing. Her 4 year old daughter has similar but milder symptoms and presented first. She denies fever, chills, headache, sore throat, abdominal pain, diarrhea, dysuria. She reports mid-sternal chest wall pain with deep coughing. SHe is not on a maintenance inhaler. She has never been intubated but did require BiPAP 2 years ago during an exacerbation. No recent travel. Past History Travel History Traveled to [place] past 21 day No Medical History Any Pertinent Medical History? 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 No Review of Systems Review of Systems Constitutional: Reports: no symptoms. EENTM: Reports: no symptoms. Respiratory: Reports: no symptoms. Cardiovascular: Reports: no symptoms. GI: Reports: no symptoms. Genitourinary: Reports: no symptoms. Musculoskeletal: Reports: no symptoms. Skin: Reports: no symptoms. Neurological/Psychological: Reports: no symptoms. Hematologic/Endocrine: Reports: no symptoms. Immunologic/Allergic: Reports: no symptoms. All Other Systems: Reviewed and Negative Physical Exam Physical Exam General Appearance: well developed/nourished, no apparent distress Head: atraumatic, normal appearance Eyes: Bilateral: normal appearance. Ears, Nose, Throat: normal ENT inspection, hearing grossly normal Neck: normal inspection, supple, full range of motion Respiratory: bilateral wheezing with RLL rhonchi Cardiovascular: regular rate/rhythm Gastrointestinal: soft, non-tender Extremities: normal inspection, normal range of motion Neurologic/Psych: awake, alert, oriented x 3, normal mood/affect Skin: intact, normal color, warm/dry Core Measures ACS in differential dx? No CVA/TIA Diagnosis No Sepsis Present: No Sepsis Focused Exam Completed? No Progress Differential Diagnosis: asthma, AMI, altitude sickness, bronchitis, costochondritis, CHF, COPD, musculoskeletal pain, pericarditis, pulmonary embolism, pneumonia, pneumothorax, rib fracture, unstable angina Plan of Care: Orders Procedure Date/time Status XRY-PORTABLE CHEST XRAY 11/26 1511 Active Diagnostic Imaging: Viewed by Me: Radiology Read. Discussed w/RAD: Radiology Read. Radiology Impression: PATIENT: TATE BINGHAM PRESENT AGE: 32 PATIENT ACCOUNT NO: [id number] : 83 LOCATION: [facility] ORDERING PHYSICIAN: Sinan Olmos MD SERVICE DATE: 11/25/17 EXAM TYPE: RAD - XRY-PORTABLE CHEST XRAY EXAMINATION: XR PORTABLE CHEST CLINICAL INFORMATION: Cough. COMPARISON: None TECHNIQUE: Portable frontal view of the chest was obtained. FINDINGS: Projection is apical lordotic. No significant abnormality is noted involving the heart, lungs, mediastinum, bony thorax or soft tissues. IMPRESSION: Unremarkable examination. DICTATED BY: Juan Colon MD DATE/TIME DICTATED:11/25/171600 FRONT FACER:JAY DATE/TIME TRANSCRIBED:1600 CONFIDENTIAL, DO NOT COPY WITHOUT APPROPRIATE AUTHORIZATION. < Electronically signed in Other Vendor System> SIGNED BY: Juan Colon MD 1604 Initial ED EKG: none Departure Departure Disposition: HOME OR SELF CARE Condition: Stable Clinical Impression Primary Impression: Asthma exacerbation Qualifiers: Asthma severity: mild Asthma persistence: intermittent Qualified Code: J45.21 - Mild intermittent asthma with (acute) exacerbation Referrals: Patient Has No Primary Care Dr (PCP/Family) Additional Instructions: Follow up with your PCP. Return to ER if any new or worsening symptoms. Departure Forms: Customer Survey General Discharge Information Prescriptions: Current Visit Scripts Prednisone 1 TAB PO BID #10 TAB Albuterol Sulfate (Proventil Hfa) 2 PUF INH Q4 PRN ASTHMA #1 INHAL Critical Care Note Critical Care Note Critical Care Time: non-applicable
[2017-11-25 15:56] VITALS: BP 120/75
--- NOTE | 2017-11-25 16:05 | RADIOLOGY REPORT ---
EXAMINATION: XR PORTABLE CHEST CLINICAL INFORMATION: Cough. COMPARISON: None TECHNIQUE: Portable frontal view of the chest was obtained. FINDINGS: Projection is apical lordotic. No significant abnormality is noted involving the heart, lungs, mediastinum, bony thorax or soft tissues. IMPRESSION: Unremarkable examination.
[2017-11-25] MEDS ORDERED: PROVENTIL HFA6.7 GM INH (17:10)
[2017-11-25] MEDS ORDERED: PREDNISONE20 M1 PO (17:10)
== END 2017-11-25 17:36 ==
LOC: ERH 12:41
DX: J45.901 Unspecified asthma with (acute) exacerbation (principal); R07.89 Other chest pain
CPT/HCPCS: 1263; 71045